=== PATIENT | male | born 1945 | race Caucasian/White ===

== ENCOUNTER 2016-05-26 11:53 | Day surgery (SDC) | payer BC ==
--- NOTE | ~2016-05-26 | EGD ---
EGD REPORT [facility] [address] [place]. [address] NAME: MARIAH WHEELER : [birth year] STATUS : REG [facility]#: [id number] AGE: 71 ADM/REG DATE : 05/26/16 MR#: [id number] REPORT SERV DATE: 05/26/16 DICTATED BY: DATE: REPORT STATUS : Draft TRANSCRIBED BY: [facility] DATE: 05/26/16 Endoscopy Center Patient Name: Mariah Wheeler Date of : 1945 Attending MD: LIGIA PIERSON MD Procedure Date No Time: 05/26/2016 Procedure: Upper GI endoscopy Indications: Gastro-esophageal reflux disease Referring MD: MARY GOULD MD Medicines: See the Anesthesia note for documentation of the administered medications Complications: No immediate complications. Estimated blood loss: Minimal. Procedure: Pre-Anesthesia Assessment: - ASA Grade Assessment: III - A patient with severe systemic disease. - Prior to the procedure, a History and Physical was performed, and patient medications and allergies were reviewed. The patient's tolerance of previous anesthesia was also reviewed. The risks and benefits of the procedure and the sedation options and risks were discussed with the patient. All questions were answered, and informed consent was obtained. Prior Anticoagulants: The patient has taken aspirin and Plavix (clopidogrel), last doses were 1 day prior to procedure. After reviewing the risks and benefits, the patient was deemed in satisfactory condition to undergo the procedure. After obtaining informed consent, the endoscope was passed under direct vision. Throughout the procedure, the patient's blood pressure, pulse, and oxygen saturations were monitored continuously. The GIF H190 [id number] was introduced through the mouth, and advanced to the second part of duodenum. The upper GI endoscopy was accomplished without difficulty. The patient tolerated the procedure well. Findings: The examined duodenum was normal. Diffuse mild inflammation characterized by congestion (edema) and erythema was found in the gastric antrum. Biopsies were taken with a cold forceps for histology. The cardia and gastric fundus were normal on retroflexion. A 2 cm hiatus hernia was present. There were esophageal mucosal changes suspicious for long-segment Guido's esophagus present in the middle third of the esophagus and in EGD REPORT [address] [address] NAME: MARIAH WHEELER : [birth year] STATUS : REG [facility] [place] PAT#: [id number] AGE: 71 ADM/REG DATE : 05/26/16 MR#: [id number] REPORT SERV DATE: 05/26/16 DICTATED BY: DATE: REPORT STATUS : Draft TRANSCRIBED BY: [employer] DATE: 05/26/16 the lower third of the esophagus. The maximum longitudinal extent of these mucosal changes was 15 cm in length. Mucosa was biopsied with a cold forceps for histology in 4 quadrants at intervals of 2 cm in the middle third of the esophagus and in the lower third of the esophagus. A total of 8 specimen bottles were sent to pathology. Impression: - Normal examined duodenum. - Gastritis. Biopsied. - Hiatus hernia. 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 Biopsied. Recommendation: - Patient has a contact number available for emergencies. The signs and symptoms of potential delayed complications were discussed with the patient. Return to normal activities tomorrow. Written discharge instructions were provided to the patient. - Regular diet. - Discharge patient to home. - Continue present medications. - Await pathology results. - Use Prilosec (omeprazole) 40 mg PO daily indefinitely. - Repeat the upper endoscopy for surveillance based on pathology results. Procedure Code(s): --- Professional --- 46467, Esophagogastroduodenoscopy, flexible, transoral; with biopsy, single or multiple Diagnosis Code(s): --- Professional --- K22.9, Disease of esophagus, unspecified K29.70, Gastritis, unspecified, without bleeding K44.9, Diaphragmatic hernia without obstruction or gangrene K21.9, Gastro-esophageal reflux disease without esophagitis CPT copyright 2013 [employer]. All rights reserved. The codes documented in this report are preliminary and upon inpatient coder review may be revised to meet current compliance requirements. LIGIA PIERSON MD 05/26/2016 2:03 PM This report has been signed electronically. EGD REPORT [facility] [address] [place]. [address] NAME: MARIAH WHEELER : [birth year] STATUS : REG [facility] PAT#: [id number] AGE: 71 ADM/REG DATE : 05/26/16 MR#: [id number] REPORT SERV DATE: 05/26/16 DICTATED BY: DATE: REPORT STATUS : Draft TRANSCRIBED BY: [employer] DATE: 05/26/16 Number of Addenda: 0 Note Initiated On: 05/26/2016 1:37 PM Scope Withdrawal Time 0 hours 0 minutes 0 seconds [address] [facility], [place] [id number]
--- NOTE | ~2016-05-26 | EGD ---
EGD REPORT [facility] [address] [place]. [address] NAME: MARIAH WHEELER : [birth year] STATUS : REG [facility] PAT#: [id number] AGE: 71 ADM/REG DATE : 05/26/16 MR#: [id number] REPORT SERV DATE: 05/26/16 DICTATED BY: MAYI PIERSON DATE: 05/26/16 REPORT STATUS : Draft TRANSCRIBED BY: [facility] DATE: 05/26/16 Endoscopy Center Patient Name: Mariah Wheeler Date of : 1945 Attending MD: LIGIA PIERSON MD Procedure Date No Time: 05/26/2016 Procedure: Colonoscopy Indications: Change in bowel habits Referring MD: MARY GOULD MD Medicines: See the Anesthesia note for documentation of the administered medications Complications: No immediate complications. Estimated blood loss: None. Procedure: Pre-Anesthesia Assessment: - ASA Grade Assessment: III - A patient with severe systemic disease. - Prior to the procedure, a History and Physical was performed, and patient medications and allergies were reviewed. The patient's tolerance of previous anesthesia was also reviewed. The risks and benefits of the procedure and the sedation options and risks were discussed with the patient. All questions were answered, and informed consent was obtained. Prior Anticoagulants: The patient has taken aspirin and Plavix (clopidogrel), last doses were 1 day prior to procedure. After reviewing the risks and benefits, the patient was deemed in satisfactory condition to undergo the procedure. After I obtained informed consent, the scope was passed under direct vision. Throughout the procedure, the patient's blood pressure, pulse, and oxygen saturations were monitored continuously. The PCF [id number] was introduced through the anus and advanced to the terminal ileum. The ileocecal valve, appendiceal orifice, terminal ileum and rectum were photographed. The entire colon was examined. The colonoscopy was performed without difficulty. The patient tolerated the procedure well. The quality of the bowel preparation was adequate. Findings: The perianal and digital rectal examinations were normal. The terminal ileum appeared normal. Non-bleeding internal hemorrhoids were found during retroflexion and were Grade I (internal hemorrhoids that do not prolapse). No other significant abnormalities were identified in a careful examination of the remainder of the colon. EGD REPORT [address] [address] NAME: MARIAH WHEELER : [birth year] STATUS : REG [facility]#: [id number] AGE: 71 ADM/REG DATE : 05/26/16 MR#: [id number] REPORT SERV DATE: 05/26/16 DICTATED BY: MAYI PIERSON DATE: 05/26/16 REPORT STATUS : Draft TRANSCRIBED BY: [employer] DATE: 05/26/16 Impression: - The examined portion of the ileum was normal. - Non-bleeding internal hemorrhoids. Recommendation: - Patient has a contact number available for emergencies. The signs and symptoms of potential delayed complications were discussed with the patient. Return to normal activities tomorrow. Written discharge instructions were provided to the patient. - Regular diet. - Discharge patient to home. - Continue present medications. - Repeat colonoscopy is not recommended for surveillance. Procedure Code(s): --- Professional --- 82709, Colonoscopy, flexible, proximal to splenic flexure; diagnostic, with or without collection of specimen(s) by brushing or washing, with or without colon decompression (separate procedure) Diagnosis Code(s): --- Professional --- K64.0, First degree hemorrhoids R19.4, Change in bowel habit CPT copyright 2013 [employer]. All rights reserved. The codes documented in this report are preliminary and upon tobacco primer machine operator review may be revised to meet current compliance requirements. LIGIA PIERSON MD 05/26/2016 2:20 PM This report has been signed electronically. Number of Addenda: 0 Note Initiated On: 05/26/2016 1:31 PM [address] [place] [address] [address]
[~2016-05-26 11:53] MED LIST: ASAB PO; COREG3 PO; CRESTOR20 MG PO; FISH OIL1200 MG PO; FLEX PO; K-TABS10 MEQ PO; L20 PO; LIPITOR80 MG PO; LOP25 PO; NEUR100 PO; NITROQUICK0.4 MG SL; NORCO1 TA1 PO; PLAVIX PO; PRIN2.5 PO
== END 2016-05-26 23:59 | disposition home or self-care (01) ==
LOC: DMU 11:53
PROVIDERS: Internal Medicine Gastroenterology
PROC: 0DB68ZX Excision of Stomach, Via Natural or Artificial Opening Endoscopic, Diagnostic (ICD-10-PCS; 2016-05-26)
PROC: 0DJD8ZZ Inspection of Lower Intestinal Tract, Via Natural or Artificial Opening Endoscopic (ICD-10-PCS; principal; 2016-05-26 14:00)
PROC: 0DB58ZX Excision of Esophagus, Via Natural or Artificial Opening Endoscopic, Diagnostic (ICD-10-PCS; 2016-05-26 14:00)
DX: K64.0 First degree hemorrhoids (principal); I10 Essential (primary) hypertension; K21.9 Gastro-esophageal reflux disease without esophagitis; K44.9 Diaphragmatic hernia without obstruction or gangrene; K29.70 Gastritis, unspecified, without bleeding; E78.00 Pure hypercholesterolemia, unspecified; Z90.49 Acquired absence of other specified parts of digestive tract; Z95.1 Presence of aortocoronary bypass graft
CPT/HCPCS: 88305